=== PATIENT | female | born 1940 | race Caucasian/White ===

== ENCOUNTER → 2017-01-27 | Outpatient (CLI) | payer OTHER ==
[~2017-01-27] MED LIST: ALBUAER19 INH; BIOF500T PO; CALC600T37 PO; CHOL1000 PO; FLUT0.15 NAE; MULTCHW PO; OMEG12006 PO; PARO1TAB PO; PAROXETINE HCL PO; RANI150T3 PO; SIMV40TA4 PO; VNTHFA/IN INH; [UNRECOGNIZED DRUG - OTHER] PO
--- NOTE | 2017-01-27 15:14 | DIAGNOSTIC IMAGING REPORT ---
LUMBAR SPINE MRI HISTORY: Low back pain. SPINAL STENOSIS TECHNIQUE: Multiplanar multisequence MRI of the lumbar spine was performed without the use of contrast. COMPARISON: None. FINDINGS: For the purpose of the report the L5-S1 disc space will be located on axial image 23 of 25. Minimal S-shaped scoliosis. No fracture or subluxation. Severe disc space narrowing at L2-L3 and L3-L4. Moderate to space narrowing at L1-L2. Mild disc space narrowing at L4-L5. The conus terminates at the L1 level. Heterogeneous endplate signal from L1 through L4 is likely due to the degenerative change. Paraspinal soft tissues are unremarkable. L1-L2: Small broad-based posterior disc bulge without significant central canal or neural foraminal narrowing. L2-L3: Small broad-based posterior disc bulge with ligamentum and facet hypertrophy resulting in moderate to severe central canal narrowing. There is also mild to moderate bilateral neural foraminal narrowing. L3-L4: Small broad-based posterior disc bulge with ligamentum and facet hypertrophy resulting in moderate to severe central canal and moderate bilateral neural foraminal narrowing. L4-L5: Broad-based posterior disc bulge with ligamentum and facet hypertrophy resulting in severe central canal narrowing. The central canal demonstrates an AP diameter of 3 mm. [id number] bilateral neural foraminal narrowing. L5-S1: Small broad-based posterior disc bulge resulting in mild central canal and mild bilateral neural foraminal narrowing. IMPRESSION: 1. Advanced multilevel degenerative changes as described above most pronounced at the L4-5 level where there is severe central canal narrowing. 2. No fracture or subluxation within the lumbar spine. 3. Minimal S-shaped scoliosis. Electronically signed by: Albert Calvillo M.D. 01/27/2017 3:13 PM Dictated Date/Time: 01/27/2017 3:06 PM
== END | disposition home or self-care (01) ==
LOC: C.MRI 13:36
PROVIDERS: ATTEND Orthopaedic Surgery Orthopaedic Surgery of the Spine
DX: M48.061 Spinal stenosis, lumbar region without neurogenic claudication (principal)

== ENCOUNTER 2017-03-01 07:43 | Inpatient (IN) | payer OTHER ==
[2017-02-11 12:00] VITALS: BMI 38.0
--- NOTE | 2017-02-11 12:37 | PAT Medication Instructions ---
Service Date Feb 11, 2017. Current Home Medication List Albuterol Hfa (Ventolin Hfa), 2-4 PUFFS INH Q6H PRN for SOB/Wheezing Bioflavonoid Products (Rocio-C), 1 TAB PO QAM Calcium (Calcium), 1 TAB PO QPM Cholecalciferol (Vitamin D3), 1 TAB PO QAM Fluticasone Propionate (Nasal) (Flonase Allergy Relief), 1 SPRAY JESSEE DIRECTED PRN for Nasal Congestion Multiple Vitamins W/ Minerals (Centrum Silver), 1 TAB PO QAM [place]-3 Fatty Acids ([place] 3), 1 CAP PO QAM Paroxetine (Paroxetine HCl ER), 1 TAB PO QPM Ranitidine Hcl (Zantac), 150 MG PO BID Simvastatin (Zocor), 40 MG PO QPM [zyphlemend], 1 TAB PO QAM Medication Instructions For Your Scheduled Surgery - Hold the following medications 2 weeks prior to surgery: [zyphlemend], 1 TAB PO QAM [place]-3 Fatty Acids ([place] 3), 1 CAP PO QAM - Hold the following medications the morning of surgery: Multiple Vitamins W/ Minerals (Centrum Silver), 1 TAB PO QAM Cholecalciferol (Vitamin D3), 1 TAB PO QAM Bioflavonoid Products (Rocio-C), 1 TAB PO QAM - Take the following medications the morning of surgery with a sip of water: Ranitidine Hcl (Zantac), 150 MG PO BID Fluticasone Propionate (Nasal) (Flonase Allergy Relief), 1 SPRAY JESSEE DIRECTED PRN for Nasal Congestion (if needed) Albuterol Hfa (Ventolin Hfa), 2-4 PUFFS INH Q6H PRN for SOB/Wheezing (if needed , and bring with you to the hospital) - Take the following medications as scheduled the night before surgery: Simvastatin (Zocor), 40 MG PO QPM Ranitidine Hcl (Zantac), 150 MG PO BID Calcium (Calcium), 1 TAB PO QPM Paroxetine (Paroxetine HCl ER), 1 TAB PO QPM If you have any questions please call us at [phone] or [phone] or [phone]
[2017-02-11 13:09] LABS: BASO % 0.6 %; BASO ABS # 0.04 K/uL (0-0.2); EOS % 2.9 %; EOS ABS # 0.19 K/uL (0-0.5); HEMOGLOBIN 13.6 g/dL (12.0-16.0); IG# 0.01 K/uL (0.00-0.02); LYMPH % 35.8 %; LYMPH ABS # 2.36 K/uL (1.2-3.4); MEAN CELL VOLUME 93.2 fL (80-100); MEAN CORPUSCULAR HEMOGLOBIN 30.9 pg (25-34); MEAN CORPUSCULAR HGB CONC 33.2 g/dl (32-36); MEAN PLATELET VOLUME 10.2 fL (7.4-10.4); MONO % 9.8 %; MONO ABS # 0.65 K/uL (0.11-0.59); NEUT % 50.7 %; NEUT ABS # 3.35 K/uL (1.4-6.5); PLATELET COUNT 226 K/uL (130-400); RED CELL DISTRIBUTION WIDTH CV 13.9 % (11.5-14.5); RED CELL DISTRIBUTION WIDTH SD 47.2 fL (36.4-46.3)
[2017-02-11 14:00] LABS: CREATININE 0.96 mg/dl (0.60-1.20); POTASSIUM 4.1 mmol/L (3.5-5.1)
[2017-03-01] VITALS (11 sets, daily range): BP systolic 126–187; BP diastolic 64–94; PULSE 75–91; TEMP 36.3–37; O2SAT 87–98; Ht 162.6 cm; Wt 100.7 kg
[~2017-03-01] VITALS: Ht 162.6 cm; Wt 100.7 kg
--- NOTE | 2017-03-01 07:28 | History & Physical Bridge Note ---
H&P Re-Evaluation Bridge Note: I have examined the patient, reviewed the History & Physical and in the interval since the performance of the History & Physical I have noted the following changes of clinical significance: No changes noted
--- NOTE | 2017-03-01 07:29 | History and Physical ---
History & Physical Date Mar 01, 2017. Chief Complaint Back and leg pain History of Present Illness The patient is a 76 year old female with complaints of back and leg pain Additional History Hepatic Disease: No Endocrine Disorder: No Kidney Disease: No Hypertension: No Heart Disease: No Bleeding Tendencies: No Infectious Diseases: No Allergies Coded Allergies: Aspirin (Verified Allergy, Severe, FACIAL SWELLING/SOB, 02/11/17) Azithromycin (Verified Allergy, Unknown, rash, 02/11/17) Ciprofloxacin (Verified Allergy, Unknown, UNSURE, 02/11/17) Macrolides and Ketolides (Verified Allergy, Unknown, FACIAL ERYTHEMA, ) Penicillins (Verified Allergy, Unknown, HIVES, 02/11/17) Pseudoephedrine (Verified Allergy, Unknown, JITTERY, 02/11/17) Home Medications Scheduled Bioflavonoid Products (Rocio-C), 1 TAB PO QAM Calcium (Calcium), 1 TAB PO QPM Cholecalciferol (Vitamin D3), 1 TAB PO QAM Multiple Vitamins W/ Minerals (Centrum Silver), 1 TAB PO QAM [place]-3 Fatty Acids ([place] 3), 1 CAP PO QAM Paroxetine (Paroxetine HCl ER), 1 TAB PO QPM Ranitidine Hcl (Zantac), 150 MG PO BID Simvastatin (Zocor), 40 MG PO QPM [zyphlemend], 1 TAB PO QAM Scheduled PRN Albuterol Hfa (Ventolin Hfa), 2-4 PUFFS INH Q6H PRN for SOB/Wheezing Fluticasone Propionate (Nasal) (Flonase Allergy Relief), 1 SPRAY JESSEE DIRECTED PRN for Nasal Congestion Physical Examination Skin: warm/dry, no rash Eyes: normal inspection, EOMI, sclerae normal ENT: normal ENT inspection, pharynx normal Head: normocephalic, atraumatic Neck: supple, no adenopathy, trachea midline Respiratory/Chest: lungs clear, normal breath sounds, no respiratory distress Cardiovascular: regular rate, rhythm, no edema, no murmur Abdomen / GI: normal bowel sounds, non tender Back: normal inspection Extremities: normal inspection, normal range of motion Neurologic/Psych: no motor/sensory deficits, alert, normal reflexes, oriented x 3 Diagnosis Lumbar spinal stenosis Plan of Treatment L2 to S1 decompression and fusion
[~2017-03-01 07:43] MED LIST changes: -ALBUAER19 INH; +ALBUMIN HUMAN 5% 12.5 GM/250 ML VIAL IV ONE; +ATROPINE SULFATE 0.1 MG/ML 5ML SYR IV PRN; +BACITRACIN 50000 UNIT VIAL ONE; +BUPIVACAINE/EPINEPHRINE 0.5% MPF 1:200,000 30 ML VIAL ONE; +CLINDAMYCIN 600 MG/54 ML D5W 54 ML IV SCH; +FENTANYL CITRATE INJ 50 MCG/1 ML 2 ML VIAL ONE; +LACTATED RINGER'S 1000ML 1,000 ML IV SCH; +MIDAZOLAM HCL 1 MG/ML 2ML VIAL ONE; +ONDANSETRON INJ 2 MG/ML 2 ML VIAL IV PRN; -PAROXETINE HCL PO
[2017-03-01] MEDS ORDERED: FENTANYL CITRATE INJ 50 MCG/1 ML 2 ML VIAL ONE ×3 (09:07→11:35)
[2017-03-01] MEDS ORDERED: HYDROmorphone INJ 2 MG/ML SYR/VIAL ONE ×3 (09:07→11:41)
[2017-03-01] MEDS ORDERED: EpHEDrine SULFATE 50MG/5ML SYR ONE ×2 (10:48→11:41)
[2017-03-01] MEDS ORDERED: PROPOFOL IV EMULSION 10 MG/ML 20 ML VIAL IV ONE (10:48)
[2017-03-01] MEDS ORDERED: LIDOCAINE HCL 2% 2 ML VIAL (20MG/ML) ONE (10:48)
[2017-03-01] MEDS ORDERED: PHENYLEPHRINE 100MCG/ML 5ML SYR ONE ×2 (10:48→11:42)
[2017-03-01] MEDS ORDERED: DEXAMETHASONE SOD INJ 4 MG/ML VIAL ONE (10:48)
[2017-03-01] MEDS ORDERED: FLOSEAL HEMOSTATIC MATRIX 10ML TOP ONE (11:25)
--- NOTE | 2017-03-01 11:36 | [facility] Operative Report ---
Operative Report Operative Date Mar 01, 2017. Pre-Operative Diagnosis Lumbar Spinal Stenosis Post-Operative Diagnosis same as preoperative Procedure(s) Performed #1 lumbar decompression new facetectomy foraminotomies L2 3 L3 4 L4 5 and L5-S1. #2 posterior spinal fusion L2 3 L3 4 L4 5 L5-S1. #3 placement of posterior segmental his mentation L2 3 L3 4 L4 5 L5-S1. #4 interbody fusion L4 5 and L5-S1. #5 patient P cage 11 x 22 mm L4 5 and 13 x 26 mm L5-S1. #6 placement locally harvested morcellized autograft in the posterolateral gutters. #7 please infuse Sponge and Master graft in the posterolateral gutters and ostial amp in the interbody space. Surgeon Dr. Chaka Robin Supervisor Ski Production Surgeon(s) Edwige Allen PA-C Estimated Blood Loss 375mL Findings Severe spinal stenosis Specimens None, Per Surgeon Description of Procedure Patient was met with preoperatively case discussed all questions addressed. After informed consent obtained patient was taken to the operative suite underwent intubation and placed in the prone position on the [place] table on top of the [place] frame. All bony prominences were well-padded ice inspected to ensure no external pressure placed upon them. This point the lumbar spine was prepped and draped in the normal sterile fashion. Sharp dissection with the assistance of Richard cardiology was performed onto an exposing the lamina and transverse processes of L2-L3 L4-L5 bilaterally. From a caudal to cephalad fashion completely negative L5 L4 L3 L2 was performed addressing severe lateral recess and foraminal stenosis. Vision and placed in L2 L3 L4 L5-S1 levels bilaterally with the assistance of fluoroscopy and the release size anabella placed. Through a trans-foraminal approach on the right complete discectomy of L5-S1 was performed. The endplates were curetted to subcortical bleeding bone and a 13 x 26 mm peek cage filled with osteon bone graft Position. Proceeded to L4 5 again through her transport foraminal approach on the right complete discectomy performed endplates current to subcortical bleeding bone any 13 x 26 mm peek cage filled with osteon bone graft Position. Rods and locked in position the transverse processes of L2-L3 L4 5 secondary [place]'s of cortical bone. Infuse collagen sponge mass graft looked harvested morcellized Was placed in the posterior gutters. Cross-linked locked in position. A 15 round DINORA drain inserted. The incision then closed with 1 Vicryl in the fascia 2 -0 Vicryl subcutaneous taste week 4-0 Monocryl for possible closure Steri- Strips dressings placed. Patient with significant stable condition. Please note Edwige Jha was present for the entire procedure involved in patient positioning complex portions of the surgeon for skin closure. I attest to the content of the Intraoperative Record and any orders documented therein. Any exceptions are noted below.
[2017-03-01] MEDS ORDERED: SODIUM CHLORIDE 0.9% 1000ML 1,000 ML IV SCH (11:40)
[2017-03-01] MEDS ORDERED: GLYCOPYRROLATE INJ 0.2 MG/ML VIAL ONE (11:42)
[2017-03-01] MEDS ORDERED: ONDANSETRON INJ 2 MG/ML 2 ML VIAL ONE ×2 (11:42→13:04)
[2017-03-01] MEDS ORDERED: NEOSTIGMINE METHYLSULFATE 1 MG/ML 10ML VIAL ONE (11:42)
--- NOTE | 2017-03-01 11:43 | DIAGNOSTIC IMAGING REPORT ---
LUMBAR SPINE 2 OR 3 VIEW CLINICAL HISTORY: L2-S1 DECOMPRESSION/FUSION COMPARISON STUDY: Lumbar spine MRI January 27, 2017. Fluoroscopy time: 27.8 seconds. FINDINGS: These images demonstrate a multilevel posterior decompression with L4-L5 and L5-S1 discectomies with interbody spacer placement. There are bilateral pedicle screws at the L2, L3, L4, L5 and S1 levels with interconnecting rods. Hardware is intact. Alignment is anatomic. IMPRESSION: Fluoroscopic images demonstrating L4-L5 and L5-S1 discectomies with L2-S1 bilateral posterior fusion. Electronically signed by: Aaron Rowland M.D. 03/01/2017 11:42 AM Dictated Date/Time: 03/01/2017 11:39 AM
[2017-03-01] MEDS ORDERED: LORAZEPAM 0.5 MG TAB PO PRN (11:45)
[2017-03-01] MEDS ORDERED: ALUMINUM/MAGNESIUM SUSP 30 ML UDC PO PRN (11:45)
[2017-03-01] MEDS ORDERED: BISACODYL 10 MG SUPP PR PRN (11:45)
[2017-03-01] MEDS ORDERED: FAMOTIDINE 20 MG TAB PO PRN (11:45)
[2017-03-01] MEDS ORDERED: LORAZEPAM INJ 0.5 MG in SYRINGE 0 ML IV PRN (11:45)
[2017-03-01] MEDS ORDERED: ALBUTEROL HFA 8 GM INHALER INH PRN (11:45)
[2017-03-01] MEDS ORDERED: DO NOT ADMINISTER PNEUMOCOCCAL VACCINE PRN (11:45)
[2017-03-01] MEDS ORDERED: SOD PHOSPHATE/SOD BIPHOSPHATE ENEMA 132 ML BTL PR PRN (11:45)
[2017-03-01] MEDS ORDERED: NALOXONE HCL 0.4 MG/1 ML VIAL/CARP IV PRN ×2 (11:45)
[2017-03-01] MEDS ORDERED: PROMETHAZINE HCL INJ 12.5 MG in SODIUM CHLORIDE 0.9% 50ML 50 ML IV PRN (11:45)
[2017-03-01] MEDS ORDERED: ACETAMINOPHEN 500 MG TAB PO PRN (11:45)
[2017-03-01] MEDS ORDERED: ACETAMINOPHEN IV 100 ML IV PRN (11:45)
[2017-03-01] MEDS ORDERED: hydrOXYzine HCL 25 MG TAB PO PRN (11:45)
[2017-03-01] MEDS ORDERED: MAGNESIUM HYDROXIDE SUSP 30 ML UDC PO PRN (11:45)
[2017-03-01] MEDS ORDERED: DO NOT ADMINISTER FLU VACCINE PRN (11:45)
[2017-03-01] MEDS ORDERED: METOCLOPRAMIDE HCL INJ 5 MG/ML 2 ML VIAL IV PRN (11:45)
[2017-03-01] MEDS ORDERED: ONDANSETRON INJ 2 MG/ML 2 ML VIAL IV PRN (11:45)
[2017-03-01] MEDS ORDERED: HYDROmorphone HCL 0.5MG/ML 50 ML CASSETTE ONE (12:15)
[2017-03-01] MEDS: FENTANYL CITRATE INJ 50 MCG/1 ML 2 ML VIAL IV PRN ×4 (12:29→12:56)
--- NOTE | 2017-03-01 12:55 | Anesthesiology Progress Note ---
Anesthesia Post Op Note Date & Time Mar 01, 2017 at 12:55 Vital Signs Pain Intensity: 8 Vital Signs Past 12 Hours Date Time Temp Pulse Resp B/P (MAP) Pulse Ox O2 Delivery O2 Flow Rate FiO2 03/01/17 12:47 91 16 95 03/01/17 12:47 91 16 03/01/17 12:46 154/78 03/01/17 12:42 91 12 96 03/01/17 12:42 91 12 03/01/17 12:41 154/71 03/01/17 12:37 89 12 03/01/17 12:37 90 12 96 03/01/17 12:36 153/69 03/01/17 12:32 87 12 100 03/01/17 12:32 86 12 03/01/17 12:31 162/75 03/01/17 12:27 87 14 94 03/01/17 12:27 87 14 03/01/17 12:26 155/69 03/01/17 12:22 87 14 03/01/17 12:22 87 14 100 03/01/17 12:21 157/74 03/01/17 12:17 86 12 99 03/01/17 12:17 86 12 03/01/17 12:16 86 12 03/01/17 12:16 86 12 164/71 99 03/01/17 12:11 87 13 03/01/17 12:11 87 13 165/77 100 03/01/17 12:06 88 13 03/01/17 12:06 89 13 164/79 98 03/01/17 12:01 90 14 182/84 97 03/01/17 12:01 90 14 03/01/17 11:56 36.2 88 16 163/88 98 Oxymask 10 03/01/17 11:56 90 19 163/85 96 03/01/17 11:56 91 19 03/01/17 08:01 37.0 75 16 187/94 95 Room Air Notes Mental Status: alert / awake / arousable, participated in evaluation Pt Amnestic to Procedure: Yes Nausea / Vomiting: adequately controlled Pain: adequately controlled, improving with treatment Airway Patency, RR, SpO2: stable & adequate BP & HR: stable & adequate Hydration State: stable & adequate Anesthetic Complications: no major complications apparent
[2017-03-01] MEDS: HYDROmorphone INJ 1 MG/ML SYR IV PRN ×2 (13:04→13:17)
[2017-03-01] MEDS ORDERED: ROCURONIUM BROMIDE 10 MG/ML 5 ML VIAL IV ONE (13:04)
[2017-03-01] MEDS: HYDROmorphone HCL 0.5MG/ML 50 ML CASSETTE IV PRN ×2 (13:48→23:10)
[2017-03-01] MEDS: SODIUM CHLORIDE 0.9% 1000ML 1,000 ML IV SCH ×2 (15:27→22:05)
[2017-03-01] MEDS ORDERED: NURSING VERBAL MED ORDER ONE (15:45)
[2017-03-01] MEDS: CLINDAMYCIN IV 600 MG in DEXTROSE 5% 50ML 50 ML IV SCH ×2 (15:47→23:29)
[2017-03-01] MEDS: PAROXETINE 12.5 MG TABCR PO SCH (20:08)
[2017-03-01] MEDS: SIMVASTATIN 40 MG TAB PO SCH (20:09)
[2017-03-01] MEDS: DOCUSATE SODIUM/SENNA 50/8.6MG TAB PO SCH (20:09)
[2017-03-01] MEDS: RANITIDINE HCL 150 MG TAB PO SCH (20:09)
[2017-03-02] VITALS (10 sets, daily range): BP systolic 121–146; BP diastolic 64–79; PULSE 78–104; TEMP 36.7–37.5; O2SAT 40–94
[2017-03-02] MEDS: SODIUM CHLORIDE 0.9% 1000ML 1,000 ML IV SCH ×2 (04:39→11:20)
[2017-03-02] MEDS ORDERED: HYDROmorphone INJ 0.5 MG/0.5 ML SYR IV PRN (06:00)
[2017-03-02] MEDS ORDERED: HYDROmorphone INJ 1 MG/ML SYR IV PRN (06:00)
[2017-03-02] MEDS ORDERED: DC PCA SCH (06:00)
[2017-03-02 07:10] LABS: BASO % 0.1 %; BASO ABS # 0.01 K/uL (0-0.2); HEMATOCRIT 36.1 % (37-47); HEMOGLOBIN 11.6 g/dL (12.0-16.0); IG# 0.03 K/uL (0.00-0.02); LYMPH % 10.5 %; LYMPH ABS # 1.55 K/uL (1.2-3.4); MEAN CELL VOLUME 94.8 fL (80-100); MEAN CORPUSCULAR HEMOGLOBIN 30.4 pg (25-34); MEAN CORPUSCULAR HGB CONC 32.1 g/dl (32-36); MEAN PLATELET VOLUME 10.3 fL (7.4-10.4); MONO ABS # 1.77 K/uL (0.11-0.59); NEUT % 77.2 %; NEUT ABS # 11.35 K/uL (1.4-6.5); PLATELET COUNT 210 K/uL (130-400); RED CELL DISTRIBUTION WIDTH CV 13.8 % (11.5-14.5); RED CELL DISTRIBUTION WIDTH SD 47.6 fL (36.4-46.3); WHITE BLOOD COUNT 14.71 K/uL (4.8-10.8)
--- NOTE | 2017-03-02 07:36 | Anesthesiology Progress Note ---
Anesthesia Post Op Note Date & Time Mar 02, 2017 at 07:36 Vital Signs Pain Intensity: 7.0 Vital Signs Past 12 Hours Date Time Temp Pulse Resp B/P (MAP) Pulse Ox O2 Delivery O2 Flow Rate FiO2 03/02/17 07:04 36.7 92 19 126/79 (95) 91 Nasal Cannula 2.0 03/02/17 03:56 93 Nasal Cannula 4.0 03/02/17 03:50 37.0 104 18 146/73 (97) 77 Room Air 03/01/17 23:25 Nasal Cannula 4.0 03/01/17 23:10 36.9 91 16 130/72 (91) 97 Nasal Cannula 4.0 03/01/17 20:18 98 Nasal Cannula 4.0 03/01/17 20:16 89 Nasal Cannula 2.0 03/01/17 20:15 87 Room Air 03/01/17 19:50 36.5 87 18 150/71 (97) 94 Nasal Cannula 4.0 Notes Mental Status: alert / awake / arousable, participated in evaluation Pt Amnestic to Procedure: Yes Nausea / Vomiting: adequately controlled Pain: adequately controlled, improving with treatment Airway Patency, RR, SpO2: stable & adequate BP & HR: stable & adequate Hydration State: stable & adequate Anesthetic Complications: no major complications apparent
[2017-03-02 07:38] LABS: CALCIUM 7.7 mg/dl (8.5-10.1); CREATININE 1.04 mg/dl (0.60-1.20); POTASSIUM 4.9 mmol/L (3.5-5.1)
[2017-03-02] MEDS: RANITIDINE HCL 150 MG TAB PO SCH ×2 (08:36→20:50)
[2017-03-02] MEDS: OXYCODONE HCL IR 5 MG TAB (IMMEDIATE RELEASE) PO PRN ×2 (08:37→20:59)
--- NOTE | 2017-03-02 12:42 | Progress Note ---
Progress Note Date of Service Mar 02, 2017. Progress Note Patient's back pain is controlled. Leg pain improved. Vital signs stable. On exam she hasn't chair at bedside. His brush hand strength testing appears comfortable. Assessment status post lumbar decompression fusion. Plans this time will continue with physical therapy occupational therapy to date assess her needs and consider discharge home the next few days.
[2017-03-02] MEDS ORDERED: NURSING VERBAL MED ORDER ONE (13:00)
[2017-03-02] MEDS: KETOROLAC TROMETHAMINE 15 MG/ML VIAL IV. PRN (15:32)
[2017-03-02] MEDS: SIMVASTATIN 40 MG TAB PO SCH (20:49)
[2017-03-02] MEDS: DOCUSATE SODIUM/SENNA 50/8.6MG TAB PO SCH (20:50)
[2017-03-02] MEDS: PAROXETINE 12.5 MG TABCR PO SCH (20:51)
[2017-03-03] MEDS: POLYETHYLENE (MIRALAX) 17 GM PACK PO SCH ×4 (05:45→23:15)
[2017-03-03] MEDS: KETOROLAC TROMETHAMINE 15 MG/ML VIAL IV. PRN (05:49)
[2017-03-03 06:41] VITALS: BP 116/65; PULSE 83; TEMP 37.3; O2SAT 92
[2017-03-03] MEDS: RANITIDINE HCL 150 MG TAB PO SCH ×2 (07:45→20:22)
[2017-03-03 08:48] VITALS: BP 120/65
[2017-03-03] MEDS ORDERED: RXC5 PO (10:49)
--- NOTE | 2017-03-03 10:50 | Discharge Instructions ---
Discharge Instructions Date of Service Mar 03, 2017. Admission Reason for Admission: Lumbar Spinal Stenosis Discharge Discharge Diagnosis / Problem: lumbar stenosis Discharge Goals Goal(s): Improve function Activity Recommendations Activity Limitations: per Instructions/Follow-up section . Instructions / Follow-Up Instructions / Follow-Up ACTIVITY RECOMMENDATIONS: SELF CARE INSTRUCTIONS AFTER THORACIC/LUMBAR FUSIONS 1. You may walk to your tolerance. It is good exercise for your legs and back. Expect some back and intermittent leg aches and pains. 2. You may perform "counter-top" level activities (make a sandwich, castro with a project, etc.). 3. No bending or lifting of more than 10 pounds or back twisting of any nature (roll like a log when turning in bed). 4. You may ride in a car for 20-30 minutes at a time. No driving until after your first visit with your doctor. 5. Frequent changes of position and restricting sitting to 30 minutes at a time will help limit the amount of back spasms and stiffness you may experience. 6. You may discontinue the use of ambulatory aids (cane, crutches, etc.) once your strength and confidence allow. 7. You may business information consultant the shower and let water strike your incision when you arrive home at least once daily. Do not take a tub bath, sit in a hot tub or go into a swimming pool until after your first recheck in the office. SPECIAL CARE INSTRUCTIONS: VERY IMPORTANT TO READ AND REVIEW A. Your surgical incision has been closed with a cosmetic suture under the skin that will dissolve in about 6 weeks. In 14 days, you can use a pair of clean scissors and cut the suture that is left outside of the skin at the ends of your incision. 1. The small skin tapes can be removed 7 days after surgery if they have not fallen off by that point. 2. You may keep the wound open to air as much as possible to promote healing after post-op day number 5 unless told otherwise by your doctor. 3. If you think the wound looks like it is becoming infected (redness or worsening drainage) and/or you are experiencing fever, chill or worsening back pain and muscle spasms, contact the office so that we may evaluate you as soon as possible. B. Complications are uncommon, but please contact us if you have any signs or symptoms of: 1. wound infection (fever higher than 102.5 degrees F, redness, separation of wound, drainage, or increasing pain from the incision) 2. blood clots in legs (pain, swelling, redness and warmth in legs) 3. urinary tract infection (fever higher than 102.5 degrees F, burning upon urination or increased frequency of urination) 4. nerve problems (inability to walk on your toes or heels, numbness, loss of bowel or bladder control) 5. any other symptoms that concern you C. Please call the office at if you have any concerns or questions about your operation or recovery. D. No smoking! Smoking drastically decreases the chance of a solid fusion. E. Do not take any anti-inflammatory medications (Indocin, Advil, Motrin, Aspirin, Naprosyn, etc.) as these may inhibit the chance of a solid fusion. Tylenol is okay to take for pain. MANAGING PAIN AFTER SPINAL SURGERY 1. Narcotic medication is intended for short-term use and will be provided for surgical pain. Surgical pain usually lasts for a period of 4-6 weeks. Narcotic medication includes Percocet, Vicodin, Darvocet, Tylenol #3 or Lortab. 2. Longer-term pain is more appropriately treated with non-narcotic medication such as Tylenol ES. 3. Muscle spasm is not appropriately treated with narcotics. Muscle relaxers such as Soma, Flexeril or Skelaxin can be used along with Tylenol ES. 4. Remember that we all live with some "aches and pains". This is not unusual or uncommon after an injury or as we get older. a. Back pain is expected and may include muscle spasms for 4 to 6 weeks after surgery. The pain should gradually improve. If the pain worsens for no apparent reason, please contact the office. b. Intermittent leg pain may also be experienced and should not be concerned about unless it worsens for no apparent reason. If so, please contact the office. 5. We will provide appropriate medication within the normal guidelines of their prescribed use. We will also be very cautious and aware of potential abuse and extended duration of patients' medication needs. a. Pain medications are for your comfort and to assist with sleep and rest so that the tissue can heal. They are not provided in order to return to normal activity and should not be used through the day. To do so or worsening pain at night can result from ongoing tissue damage and development of tolerance to the prescribed medicine. 6. Please allow 2-3 days to process refills. Prescriptions will not be mailed but must be picked up at the office. FOLLOW UP VISIT: Keep your scheduled follow-up appointment. Any questions, please call the office at . Current Hospital Diet Patient's current hospital diet: Regular Diet Discharge Diet Recommended Diet: Regular Diet Procedures Procedures Performed: #1 lumbar decompression new facetectomy foraminotomies L2 3 L3 4 L4 5 and L5-S1. #2 posterior spinal fusion L2 3 L3 4 L4 5 L5-S1. #3 placement of posterior segmental his mentation L2 3 L3 4 L4 5 L5-S1. #4 interbody fusion L4 5 and L5-S1. #5 patient P cage 11 x 22 mm L4 5 and 13 x 26 mm L5-S1. #6 placement locally harvested morcellized autograft in the posterolateral gutters. #7 please infuse Sponge and Master graft in the posterolateral gutters and ostial amp in the interbody space. Pending Studies Studies pending at discharge: no Medical Emergencies . Who to Call and When: Medical Emergencies: If at any time you feel your situation is an emergency, please call 911 immediately. . Non-Emergent Contact Non-Emergency issues call your: Primary Care Provider . "Provider Documentation" section prepared by Chaka Robin. . VTE Core Measure Inpt VTE Proph given/why not?: Mary Leigh, SCD's
--- NOTE | 2017-03-03 13:26 | Progress Note ---
Progress Note Date of Service Mar 03, 2017. Progress Note Patient is patient is possibly #2 chronic back pain is controlled. Leg pain improved. Vital signs stable. 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 On exam she appears quite comfortable again ambulating with a walker without difficulty. Assessment status post lumbar decompression fusion. Plan this time we plan for continued therapy and possible discharge home tomorrow.
[2017-03-03 15:45] VITALS: BP 131/78; PULSE 73; TEMP 36.8; O2SAT 94
[2017-03-03] MEDS: SIMVASTATIN 40 MG TAB PO SCH (20:22)
[2017-03-03] MEDS: PAROXETINE 12.5 MG TABCR PO SCH (20:22)
[2017-03-03] MEDS: DOCUSATE SODIUM/SENNA 50/8.6MG TAB PO SCH (20:22)
[2017-03-03 23:05] VITALS: BP 127/72; PULSE 86; TEMP 37.5; O2SAT 88
[2017-03-03 23:09] VITALS: O2SAT 97
[2017-03-04] MEDS: POLYETHYLENE (MIRALAX) 17 GM PACK PO SCH ×3 (05:36→17:34)
[2017-03-04] MEDS: OXYCODONE HCL IR 5 MG TAB (IMMEDIATE RELEASE) PO PRN ×3 (07:01→17:38)
[2017-03-04] MEDS: RANITIDINE HCL 150 MG TAB PO SCH ×2 (07:41→20:52)
[2017-03-04 08:11] VITALS: BP 136/72; PULSE 79; TEMP 37.4; O2SAT 94
--- NOTE | 2017-03-04 12:07 | Progress Note ---
Progress Note Date of Service Mar 04, 2017. Progress Note Pain is well-controlled. She is ambulating well with her today. On exam she is resected testing. She's not had a bowel movement as of yet. Plan at this time we will advance her bowel regimen to continue to encourage ambulation today and anticipate discharge home tomorrow.
[2017-03-04 15:50] VITALS: BP 147/77; PULSE 83; TEMP 36.7; O2SAT 93
[2017-03-04] MEDS: PAROXETINE 12.5 MG TABCR PO SCH (20:52)
[2017-03-04] MEDS: SIMVASTATIN 40 MG TAB PO SCH (20:52)
[2017-03-04] MEDS: DOCUSATE SODIUM/SENNA 50/8.6MG TAB PO SCH (20:52)
[2017-03-04 23:58] VITALS: BP 115/66; PULSE 79; TEMP 36.8; O2SAT 92
[2017-03-05] MEDS: OXYCODONE HCL IR 5 MG TAB (IMMEDIATE RELEASE) PO PRN ×4 (00:05→15:15)
[2017-03-05] MEDS: POLYETHYLENE (MIRALAX) 17 GM PACK PO SCH ×3 (05:45→11:15)
[2017-03-05 06:10] VITALS: BP 131/72; PULSE 73; TEMP 36.7; O2SAT 91
[2017-03-05] MEDS: RANITIDINE HCL 150 MG TAB PO SCH (07:22)
--- NOTE | 2017-03-05 13:31 | Discharge Summary ---
Orthopedic Discharge Summary Admission Date/Reason Mar 01, 2017 at 08:30 Lumbar Spinal Stenosis. Discharge Date/Disposition Mar 05, 2017 Home Diagnosis Principal Diagnosis: Lumbar spinal stenosis Admission Physical Exam As per Admitting History & Physical. Hospital Course Patient underwent lumbar decompression and fusion tolerated this well was taken to the orthopedic floor postoperative. Postop day #1 she was up and ambulatory progressed postop day #2 and 3. DINORA drain decreasing properly. Subsequently discharged home. Discharge orders and instructions found on the chart for further review. Discharge Instructions Please refer to the electronic Patient Visit Report (Discharge Instructions) for additional information.
[2017-03-05 14:41] VITALS: BP 131/72; PULSE 73; TEMP 36.7; O2SAT 91
[2017-03-05 15:00] VITALS: BP 163/71; PULSE 74; TEMP 37; O2SAT 94
== END 2017-03-05 16:45 | disposition home or self-care (01) | DRG 455 ==
LOC: C.ACU 07:43 → C.3E 08:30 → ENRESERV 13:01
PROVIDERS: ADMIT Orthopaedic Surgery Orthopaedic Surgery of the Spine; ATTEND Orthopaedic Surgery Orthopaedic Surgery of the Spine
PROC: 0SG3071 Fusion of Lumbosacral Joint with Autologous Tissue Substitute, Posterior Approach, Posterior Column, Open Approach (ICD-10-PCS; principal; 2017-03-01 09:45)
PROC: 0SG30AJ Fusion of Lumbosacral Joint with Interbody Fusion Device, Posterior Approach, Anterior Column, Open Approach (ICD-10-PCS; principal; 2017-03-01 09:45)
PROC: 0SG00AJ Fusion of Lumbar Vertebral Joint with Interbody Fusion Device, Posterior Approach, Anterior Column, Open Approach (ICD-10-PCS; principal; 2017-03-01 09:45)
PROC: 0ST20ZZ Resection of Lumbar Vertebral Disc, Open Approach (ICD-10-PCS; principal; 2017-03-01 09:45)
PROC: 0ST40ZZ Resection of Lumbosacral Disc, Open Approach (ICD-10-PCS; principal; 2017-03-01 09:45)
PROC: 0SG1071 Fusion of 2 or more Lumbar Vertebral Joints with Autologous Tissue Substitute, Posterior Approach, Posterior Column, Open Approach (ICD-10-PCS; principal; 2017-03-01 09:45)
DX: M48.061 Spinal stenosis, lumbar region without neurogenic claudication (principal); Z79.899 Other long term (current) drug therapy; Z88.0 Allergy status to penicillin; Z88.6 Allergy status to analgesic agent; Z88.1 Allergy status to other antibiotic agents

== ENCOUNTER → 2017-05-10 | Outpatient (CLI) | payer OTHER ==
[~2017-05-10] MED LIST changes: -ALBUMIN HUMAN 5% 12.5 GM/250 ML VIAL IV ONE; -ATROPINE SULFATE 0.1 MG/ML 5ML SYR IV PRN; -BACITRACIN 50000 UNIT VIAL ONE; -BUPIVACAINE/EPINEPHRINE 0.5% MPF 1:200,000 30 ML VIAL ONE; -CLINDAMYCIN 600 MG/54 ML D5W 54 ML IV SCH; -FENTANYL CITRATE INJ 50 MCG/1 ML 2 ML VIAL ONE; -LACTATED RINGER'S 1000ML 1,000 ML IV SCH; -MIDAZOLAM HCL 1 MG/ML 2ML VIAL ONE; -ONDANSETRON INJ 2 MG/ML 2 ML VIAL IV PRN; +RXC5 PO
--- NOTE | 2017-05-10 15:32 | DIAGNOSTIC IMAGING REPORT ---
ULTRASOUND RIGHT LOWER EXTREMITY VENOUS CLINICAL HISTORY: Right leg pain and swelling. COMPARISON STUDY: No priors. TECHNIQUE: Real-time, grayscale, and color Doppler sonography of the deep veins of the right lower extremity was performed from the inguinal crease to the calf. Compression and augmentation were utilized. FINDINGS: There is no sonographic evidence of deep venous thrombosis identified in the right lower extremity. The common femoral, superficial femoral, and popliteal veins are patent and normally compressible. The greater saphenous vein and the profunda femoris vein at the junction with the common femoral vein are clear. The visualized calf veins are patent. A popliteal cyst measures 3.6 x 0.9 x 2.2 cm. IMPRESSION: 1. There is no sonographic evidence of deep venous thrombosis identified in the right lower extremity. 2. Popliteal cyst. Electronically signed by: Carroll Montiel M.D. 05/10/2017 3:30 PM Dictated Date/Time: 05/10/2017 3:30 PM
== END | disposition home or self-care (01) ==
LOC: C.ULTR 14:48
PROVIDERS: ATTEND Orthopaedic Surgery Orthopaedic Surgery of the Spine
DX: M51.37 Other intervertebral disc degeneration, lumbosacral region (principal); M71.21 Synovial cyst of popliteal space [Baker], right knee